=== PATIENT | female | born 1975 | race Two or more races ===

== ENCOUNTER 2018-01-21 21:03 | Emergency (ER) | payer MEDICAID ==
[~2018-01-21] VITALS: Ht 149.9 cm; Wt 65.8 kg
[2018-01-21 21:23] VITALS: BP 159/93
== END 2018-01-22 05:06 | disposition home or self-care (01) ==
LOC: ER 21:03
DX: H66.93 Otitis media, unspecified, bilateral (principal); Z88.2 Allergy status to sulfonamides